=== PATIENT | male | born 1995 | race Caucasian/White ===

== ENCOUNTER 2017-12-22 16:23 | Emergency (ER) | payer OTHER ==
[2017-12-22 16:39] VITALS: RESP 16; TEMP 98.4; O2SAT 95
--- NOTE | 2017-12-22 20:43 | EDPHY ---
H & P Stated Complaint: etoh/jumped of friends balcony inj l wrist/pt denies other injury - Personal History Current Tetanus/Diphtheria Vaccine: Yes - Medical/Surgical History Hx Asthma: No Hx Chronic Respiratory Disease: No Hx Diabetes: No Hx Cardiac Disease: No Hx Renal Disease: No Hx Cirrhosis: No Hx Alcoholism: No Hx HIV/AIDS: No Hx Splenectomy or Spleen Trauma: No Other PMH: denies - Social History Smoking Status: Never smoked Time Seen by Provider: 12/22/17 18:25 HPI/ROS: Chief complaint: Left wrist injury History of present illness: This is a 22-year-old male who presents to the emergency department for a left wrist injury. Patient was jumping over a fence when he fell on to his left wrist. Since then he has had pain. Difficulty moving the wrist. He dnies other associated signs or symptoms including no open wounds. No abnormal coolness or paresthesias in the finger. No report of trauma to other parts of the body. (Destin Peña) - Physical Exam Exam: General Appearance: Alert, nontoxic Eyes: PERRLA Respiratory: Lungs clear to auscultation bilaterally Cardiac: Regular rate and rhythm. Gastrointestinal: Bowel sounds are normal. Abdomen is soft, nondistended, nontender. Neurological: Alert and oriented x4. Strength and sensation is intact and symmetrical. Sensation is intact distal to the injury of the left wrist. Skin: No lesions consistent with trauma noted. Musculoskeletal: Head and spine are nontender. There is tenderness to the left wrist. He does not want move it secondary to pain. The rest of the left hand and arm are unremarkable. (Destin Peña) Constitutional: Initial Vital Signs Temperature (C) 36.9 C 12/22/17 16:36 Heart Rate 87 12/22/17 16:36 Respiratory Rate 16 12/22/17 16:36 Blood Pressure 119/77 12/22/17 16:36 O2 Sat (%) 95 12/22/17 16:36 O2 Delivery Mode Room Air Allergies/Adverse Reactions: No Known Allergies Allergy (Unverified 12/22/17 16:35) Home Medications: Medication Instructions Recorded Hydrocodone/APAP 5/325 [[place] 1 tab PO Q6H #10 tab 12/22/17 5/325 (*)] Medical Decision Making - Diagnostics Imaging: I viewed and interpreted images myself - Diagnostics Imaging Results: Imaging Impressions Wrist X-Ray 12/22/17 16:40 Impression: Comminuted displaced and angulated fracture of the distal left radius with intra-articular extension. Displaced ulnar styloid fracture. Wrist X-Ray 12/22/17 20:10 Impression: Partial reduction of the comminuted displaced and angulated intra- articular fracture of the distal radius. Displaced fracture of the ulnar styloid. Procedures: A hematoma block with 10 cc of 1% lidocaine without epinephrine was placed. Patient obtained good anesthesia from it. Procedure: Left distal radius fracture reduction. The distal radius fracture was reduced in the usual fashion without complications. Post reduction the patient's neurovascular exam is normal. Post reduction x-ray demonstrates improvement in position. The procedure was performed by myself. Procedure: Splint placement. A sugar-tong splint was applied. After application of the splint I returned and re-examined the patient. The splint was adequately immobilizing the joint and distal to the splint the patient's circulation and sensation was intact. ( Destin Peña) ED Course/Re-evaluation: The patient was evaluated and managed by the physician's nursing assistants teacher. My cosignature indicates that I reviewed the chart and I agree with the findings and plan of care as documented. I am the secondary supervising physician. ( Olive Lozada) Patient seen under the supervision of my secondary supervising physician Dr. Olive Lozada. Patient presents to the emergency department for a left wrist injury. By history and physical exam no evidence of trauma to other parts of the body. The left upper extremity is neurovascularly intact. It is reduced with some improvement in position. Patient is splinted. He remains neurovascularly intact. Ultimately I discussed with him that he needs to follow up with Orthopedics for definitive care and referral information is given. Return precautions are given. Patient voiced understanding and agreement with plan. (Destin Peña) Differential Diagnosis: Included but not limited to fracture, dislocation, contusion (Destin Peña) Departure - Departure Disposition: Home, Routine, Self-Care Clinical Impression: Wrist fracture, left Qualifiers: Encounter type: initial encounter Fracture type: closed Qualified Code(s): S62.102A - Fracture of unspecified carpal bone, left wrist, initial encounter for closed fracture Condition: Good Instructions: Wrist Fracture in Adults (ED) Additional Instructions: Follow-up with orthopedics for continued evaluation and care In regards to pain control see the following: Use ibuprofen [600] mg [3] times a day for the next 2-3 days for pain In addition You have been prescribed [[place]] for pain. [[place]] contains Tylenol, do not take extra Tylenol/acetaminophen/Apap with it. It is sedating. If symptoms worsen or new symptoms develop return to the emergency room Referrals: NONE *PRIMARY CARE P,. [Primary Care Provider] - As per Instructions Kush Mcmullen MD [Medical Doctor] - As per Instructions Prescriptions: Hydrocodone/APAP 5/325 [[place] 5/325 (*)] 1 tab PO Q6H #10 tab
[2017-12-22 21:05] VITALS: BP 137/88; PULSE 81
== END 2017-12-22 21:04 | disposition home or self-care (01) ==
PROC: 0PSJXZZ Reposition Left Radius, External Approach (ICD-10-PCS; principal; 2017-12-22)
DX: S52.572A Other intraarticular fracture of lower end of left radius, initial encounter for closed fracture (principal); S52.612A Displaced fracture of left ulna styloid process, initial encounter for closed fracture; W19.XXXA Unspecified fall, initial encounter; Y99.8 Other external cause status; Y93.39 Activity, other involving climbing, rappelling and jumping off
CPT/HCPCS: A4565